=== PATIENT | male | born 1965 | race Caucasian/White ===

== ENCOUNTER 2017-01-11 17:24 | Emergency (ER) | payer OTHER ==
[~2017-01-11] VITALS: Ht 167.6 cm; Wt 76.2 kg
--- NOTE | 2017-01-11 19:48 | ED GI/GU/ABDOMINAL COMPLAINT ---
History of Present Illness General Chief Complaint: Male Genitourinary Problems Stated Complaint: DYSURIA, PELVIC PRESSURE, FREQUENCY WITH URINATION Source: patient Exam Limitations: no limitations Vital Signs & Intake/Output Vital Signs & Intake/Output Vital Signs Date Time Temp Pulse Resp B/P B/P Pulse O2 O2 Flow FiO2 Mean Ox Delivery Rate 01/11 2014 97.6 98 18 132/86 97 Room Air 01/11 173 97.6 98 18 137/84 99 Room Air Room Air Allergies Coded Allergies: NO KNOWN ALLERGIES (03/17/12) Reconcile Medications Ciprofloxacin HCl (Cipro) 500 MG TABLET 1 TAB PO BID PRN UTI Lisinopril 20 MG TABLET 1 TAB PO QAM HIGH BLOOD PRESSURE (Reported) Phenazopyridine HCl (Pyridium) 100 MG TABLET 1 TAB PO TID PRN DYSURIA TAKE WITH FOOD, URINE MAY CHANGE ORANGE Triage Note: PT TO ED WITH C/O PRESSURE AND PAIN WHEN URINATING FOR 2 DAYS. CUP GIVEN FOR URINE SPECIMEN. Triage Nurses Notes Reviewed? yes Onset: Gradual Duration: constant Timing: recent history Quality/Severity: burning, moderate Severity Numbers: 5 Location: urethral Radiation: no radiation HPI: Patient is a 51-year-old male with a past medical history of urinary tract infections and prostate is were patient has established relationship with urologist Dr. DUMONT which she presents emergent with a four-day history of dysuria and increased frequency of urination. Denies any fever chills back pain penile discharge testicular pain or swelling or abdominal pain nausea vomiting. (Dale Lan) Past History Travel History Traveled to [place] past 21 day No Medical History Any Pertinent Medical History? 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 No (Dale Lan) Review of Systems Review of Systems Constitutional: Reports: no symptoms. EENTM: Reports: no symptoms. Respiratory: Reports: no symptoms. Cardiovascular: Reports: no symptoms. GI: Reports: see HPI. Denies: abdominal pain. Genitourinary: Reports: see HPI, dysuria, frequency. Denies: discharge. Musculoskeletal: Reports: no symptoms. Skin: Reports: no symptoms. Neurological/Psychological: Reports: no symptoms. Hematologic/Endocrine: Reports: no symptoms. Immunologic/Allergic: Reports: no symptoms. All Other Systems: Reviewed and Negative (Dale Lan) Physical Exam Physical Exam General Appearance: no apparent distress, alert Head: atraumatic Eyes: Bilateral: normal appearance. Ears, Nose, Throat, Mouth: hearing grossly normal Neck: normal inspection Respiratory: no respiratory distress Gastrointestinal: normal bowel sounds, soft, non-tender Rectal: normal inspection, normal rectal tone, NON TENDER NONTENDER PROSTATE PALPATED Back: normal inspection Extremities: normal range of motion Neurologic/Psych: no motor/sensory deficits Skin: intact, normal color Core Measures ACS in differential dx? No Sepsis Present: No Sepsis Focused Exam Completed? No (Dale Lan) Progress Differential Diagnosis: appendicitis, biliary colic, bowel obstruction, colon cancer, cholecystitis, diverticulitis, epididymitis, esophageal varices, gastritis, hepatitis, hernia, hemorrhoids, ischemic bowel, inflamm bowel dis, orchitis, pancreatitis, prostatitis, peptic ulcer, PUD/GERD, perforated viscous, pyelonephritis, SBO, STD, testicular torsion, ureterolithiasis, urinary retention, urethritis, UTI/pyelo Plan of Care: Orders Procedure Date/time Status CULTURE,URINE 01/11 1726 Active CHLAMYDIA-GC DNA PROBE 01/11 1726 Active URINALYSIS 01/11 1726 Complete Laboratory Tests 01/11/171747: Urine Color YEL, Urine Clarity CLEAR, Urine pH 6.0, Ur Specific [place] 1.020, Urine Protein NEG, Urine Ketones TRACE H, Urine Nitrite NEG, Urine Bilirubin NEG, Urine Urobilinogen 0.2, Ur Leukocyte Esterase TRACE H, Ur Microscopic SEDIMENT EXAMINED, Urine RBC RARE, Urine WBC 25-50 H, Ur Epithelial Cells OCCAS , Hyaline Casts RARE H, Urine Mucus MOD H, Urine Hemoglobin NEG, Urine Glucose NEG Microbiology 01/12 1748 URINE ROUT: GC DNA Probe - RECD 01/12 1748 URINE ROUT: Chlamydia DNA Probe (NELLIE) - RECD 01/12 1748 URINE ROUT: Urine Culture - RECD Patient on initial examination was in no apparent distress resting complaining bedside afebrile nontender abdomen. Patient will be treated for concerns of UTI however he was strongly advised to follow-up with urology. Urine culture gonorrhea chlamydia cultures pending Initial ED EKG: none (Dale Lan) Departure Departure Disposition: HOME OR SELF CARE Condition: Stable Clinical Impression Primary Impression: UTI (urinary tract infection) Referrals: Jess MCCLENDON,Sujata Winn (PCP/Family) Additional Instructions: As discussed begin the prescription of PYRIDIUM for pain with urination note that this may change the color of urine orange, begin the prescription ciprofloxacin as directed for the full course and follow-up with your established urologist Dr. DUMONT for further evaluation treatment on Wednesday if no better. Discussed is waiting [facility] [place]. If symptoms worsen return to emergency room. Departure Forms: Customer Survey General Discharge Information Prescriptions: Current Visit Scripts Ciprofloxacin HCl (Cipro) 1 TAB PO BID PRN UTI #20 TAB Phenazopyridine HCl (Pyridium) 1 TAB PO TID PRN DYSURIA #6 TAB TAKE WITH FOOD, URINE MAY CHANGE ORANGE (Dale Lan) PA/SPRAY BOOTH OPERATOR Co-Sign Statement Statement: ED Attending supervision documentation- [] I saw and evaluated the patient. I have also reviewed all the pertinent lab results and diagnostic results. I agree with the findings and the plan of care as documented in the PA's/SPRAY BOOTH OPERATOR's documentation. [X] I have reviewed the ED Record and agree with the PA's/SPRAY BOOTH OPERATOR's documentation. [] Additions or exceptions (if any) to the PAs/SPRAY BOOTH OPERATOR's note and plan are summarized below: [] (Amita MCCLENDON,[facility])
[2017-01-11 20:14] VITALS: BP 132/86
[2017-01-11] MEDS ORDERED: LISINOPRIL20 M1 PO (20:19)
[2017-01-11] MEDS ORDERED: PYRIDIUM100 M1 PO (20:33)
[2017-01-11] MEDS ORDERED: CIPRO500 M1 PO (20:33)
[2017-01-18] MEDS ORDERED: FLOMAX0.4 M1 PO ×2 (11:40→16:46)
[2017-01-18] MEDS ORDERED: CIPRO500 M1 PO (14:07)
== END 2017-01-11 20:36 ==
LOC: ERH 17:24
DX: N39.0 Urinary tract infection, site not specified (principal)
CPT/HCPCS: 81001; 87086; 87491; 87591